=== PATIENT | female | born 1995 | race Caucasian/White ===

== ENCOUNTER 2018-06-05 18:20 | Emergency (ER) | payer OTHER, MEDICAID, SELFPAY ==
[2018-06-05 18:50] VITALS: PULSE 99; RESP 20; O2SAT 95
--- NOTE | 2018-06-05 19:01 | ED_ITS ---
HPI - Abdominal Pain General Chief Complaint: Abdominal Pain Stated Complaint: THROWING UP Time Seen by Provider: 06/05/18 18:57 Source: patient Mode of arrival: ambulatory Limitations: no limitations History of Present Illness HPI narrative: Patient is a 22-year-old female here for hyperemesis secondary to smoking marijuana. She states that she has had this in the past. She did admit to smoking marijuana just prior to arrival here in the ER. She states she has been vomiting all day. States she is ran out of her Phenergan suppositories. She states that when this happens she normally gets Zofran, Phenergan, Ativan and then either morphine or Dilaudid. Patient was throwing up in the waiting room. She had a bowel movement while on the bed in the exam room. She was allowed to shower. She vomited all over the floor on the way to the shower. Related Data Previous Rx's Medication Instructions Recorded promethazine [Phenergan] 25 mg [place] Q4-6H PRN #12 each 06/05/18 Allergies Allergy/AdvReac Type Severity Reaction Status Date / Time No Known Drug Allergies Allergy Verified 06/05/18 18:49 Review of Systems Constitutional Denies fever(s) Cardiovascular Denies chest pain and Denies dyspnea Respiratory Denies dyspnea Gastrointestinal Gastrointestinal: Reports abdominal pain, Reports nausea and Reports vomiting Integumentary/Breasts Denies rash Hematologic/Lymphatic Comments: Not on anticoagulation PFSH Medical History Cannabis hyperemesis syndrome concurrent with and due to cannabis abuse (Acute) Surgical History No pertinent past surgical history (Acute) Social History Smoking Status: Never smoker Exam Initial Vital Signs Initial Vital Signs: Vital Signs Pulse Rate 99 H 06/05/18 18:50 Respiratory Rate 20 06/05/18 18:50 Pulse Oximetry 95 06/05/18 18:50 Const General: No comfortable (Uncomfortable) and in distress Orientation: alert, awake and oriented x3 HENMT Head: normal to inspection and normocephalic Resp Effort & Inspection: normal respiratory effort Cardio Rate: regular rate GI Inspection: non-distended Skin Rashes: no rashes Neuro General: alert, awake and oriented x3 Speech: speech normal Extrem General: normal to inspection and capillary refill normal Psych Appearance: grossly normal and well kempt Mood: angry Affect: anxious affect Attitude: belligerent Course Orders Ordered: ED Orders 06/05/18 19:15 Urine Microscopic Stat Discontinued Medications Sodium Chloride (Normal Saline 0.9%) 1,000 mls @ 1,000 mls/hr IV BOLUS ONE Stop: 06/05/18 20:23 Last Infusion: 06/05/18 21:33 Dose: 0 mls/hr Admin: 06/05/18 19:39 Dose: 1,000 mls/hr Ketorolac Tromethamine (Toradol) 30 mg IV NOW ONE Stop: 06/05/18 19:50 Last Admin: 06/05/18 19:58 Dose: 30 mg Lorazepam (Ativan) 1 mg IV NOW ONE Stop: 06/05/18 19:25 Last Admin: 06/05/18 19:39 Dose: 1 mg Lorazepam (Ativan) 1 mg IV NOW ONE Stop: 06/05/18 20:32 Last Admin: 06/05/18 20:44 Dose: 1 mg Ondansetron HCl (Zofran) 4 mg IV NOW ONE Stop: 06/05/18 20:32 Last Admin: 06/05/18 20:44 Dose: 4 mg Promethazine HCl (Phenadoz) 25 mg [place] NOW ONE Stop: 06/05/18 19:25 Last Admin: 06/05/18 19:41 Dose: 25 mg Vital Signs - 8 hr 06/05/18 18:50 06/05/18 21:39 Pulse Rate 99 H 89 Respiratory Rate 20 18 Blood Pressure [Left Arm] 135/86 Pulse Oximetry 95 95 MDM - Abdominal Pain Lab Data Attestation: I reviewed the patient's lab results. Lab Results 06/05/18 Range/Units 19:15 Urine RBC 1-5/hpf (0-5/HPF) Urine WBC 1-5/hpf (0-5/HPF) Ur Squamous Epith Cells 5-10 /hpf H Urine Bacteria Many (>30) H (None) Ur Culture Indicated? Cult not indicated Micro UA Comment Not Reportable Point of care testing: Point of Care Testing Test Results Negative Urine Dip Bedside Urine Glucose Negative Bedside Urine Bilirubin - Negative Bedside Urine Ketone - Negative Urine Specific [place] 1.030 Bedside Urine Occult Blood +/- Bedside Urine pH 6.0 Bedside Urine Protein - Negative Bedside Urine Urobilinogen - Negative Bedside Urine Nitrite - Negative Bedside Urine Leukocytes - Negative Esterase MDM Narrative Medical decision making narrative: Upon arrival patient states that she did smoke marijuana just prior to arrival. She states that when this happens she normally gets Ativan, Zofran, Phenergan and then either morphine or Dilaudid. I told her on my initial exam that I would not be providing her any opioid medications for this. I informed her that this condition is caused by her excessive smoking of marijuana can be avoided by not smoking marijuana. I informed her that I would be happy to provide medications for her nausea and other non opioid medications for pain relief. During her time here in the emergency department patient was given Toradol, Zofran, a total 2 mg of Ativan, rectal Phenergan, and fluids. She continually was asking for either morphine or Dilaudid and I again informed her that I would not provide opioid medications. She states she cannot take Haldol because it ?makes things worse ? she states she cannot take Tylenol. Patient was extremely belligerent during her time here in the ER. Was on the nurse call light asking where her medication was less than 5 min after I walked out of the room informing her that I would provide more nausea medication for her. At 1 point I did inform the patient that I was here to try to help her symptoms get better however it does take time for us to order the medicines and get the medicine and then administer them. Then that it was not an immediate turn around. Nursing staff stated that the patient was asking to go home. When I went back in the room I did offer other nausea medication. I informed her that we could try the things such as Reglan or Compazine and Benadryl. She again was asking for morphine and Dilaudid and I told her once again that I would not give these medications. Patient asking to go home. The patient's mother was at bedside for much of these discussions. The patient did take out her own IV. They stated that they wanted to be discharged that they could go to a hospital where they ?would be treated ?I did send her home with a prescription for Phenergan suppositories. I did inform her that the symptoms would probably resolve if she were to stop smoking marijuana. I informed her that she could return to the emergency department at any time. Discharge Plan Departure Patient Disposition: Home Clinical Impression: Cannabis hyperemesis syndrome concurrent with and due to cannabis abuse Discharge Date/Time: 06/05/18 21:47 Interventions: ED Discharge Assessment Last Done: 06/05/18 21:46 Instructions: DI for Nausea -- Adult, DI for Vomiting -- Adult Activity Restrictions/Additional Instructions: You declined the offer to try other anti nausea medications. Your symptoms this evening are caused by your use of marijuana. I do highly suggest that you reduce the amount that you are using if not completely stop. This should keep these issues from returning. I do recommend that you drink small amounts of fluid over longer periods of time. Your vomiting should improve with time and with avoiding marijuana. Contact your primary care doctor for a follow-up. Prescriptions: New promethazine [Phenergan] 25 mg suppository 25 mg [place] Q4-6H PRN (Reason: nausea and vomiting) Qty: 12 RF: 0
--- NOTE | 2018-06-05 19:05 | PC.NURSE ---
Pt took hot shower. FAMILY MEDICINE CHAIR informed this RN that pt vomited once again while in the bathroom.
--- NOTE | 2018-06-05 19:23 | PC.NURSE ---
Dr Lopez at bedside assessing pt. Awaiting orders.
[2018-06-05 19:31] LABS: Bacteria Urine Many (>30); Culture Indicated Urine Cult Not Indicated; RBC Urine 1-5/HPF (0-5/HPF); Squamous Epithelial Cell Urine 5-10 /HPF; WBC Urine 1-5/HPF (0-5/HPF)
[2018-06-05] MEDS: SODIUM CHLORIDE 0.9% 1,000 ML 1000 ML IV (19:39)
[2018-06-05] MEDS: LORazepam 2 MG/ML SYRINGE 1 MG IV ×2 (19:39→20:44)
[2018-06-05] MEDS: PROMETHAZINE 25 MG SUPP PR (19:41)
[2018-06-05] MEDS: KETOROLAC 60 MG/2 ML VIAL 30 MG IV (19:58)
--- NOTE | 2018-06-05 20:28 | PC.NURSE ---
Pt resting on right side. Fluids continue to infuse. Pt requesting multiple times for blankets. No wretching noted at this time.
[2018-06-05] MEDS: ONDANSETRON 4 MG/2 ML INJ IV (20:44)
--- NOTE | 2018-06-05 21:35 | PC.NURSE ---
Dr Lopez at bedside. Pt's mother informed nursing staff that they are ready for D/C
[2018-06-05 21:39] VITALS: BP 135/86; PULSE 89; RESP 18; O2SAT 95
== END 2018-06-05 21:47 | disposition home or self-care (01) ==
PROVIDERS: Emergency Provider Emergency Medicine
DX: F12.188 Cannabis abuse with other cannabis-induced disorder (principal)
CPT/HCPCS: 81003; 81015; 81025; 96361; 96374; 96375; 96376; 99283; 99284; J1885; J2060; J2405